=== PATIENT | male | born 1935 | race Caucasian/White ===

== ENCOUNTER 2017-08-19 17:04 | Emergency (ER) | payer MEDICARE ==
[2017-08-19] MEDS ORDERED: COCAINE 4 ML BOTTLE TOP STA (17:52)
--- NOTE | 2017-08-19 17:54 | ED Physician Documentation ---
PD HPI HEENT - Stated complaint Stated Complaint: NOSE BLEED - Chief complaint Chief Complaint: Heent - History obtained from History obtained from: Patient, Family - History of Present Illness Timing - onset: Other (On and off right-sided nosebleed for the last 24 hours. He is not anticoagulated except for baby aspirin. He is on dialysis, Thursday, Thursday, Thursday, but because of easy bleeding is not heparinized during the run.) Review of Systems Constitutional: denies: Fever, Chills Nose: denies: Rhinorrhea / runny nose, Congestion Cardiac: denies: Chest pain / pressure, Palpitations Respiratory: denies: Dyspnea, Cough GI: denies: Abdominal Pain PD PAST MEDICAL HISTORY - Past Medical History Past Medical History: Yes Cardiovascular: Congestive heart failure, High cholesterol, OR Respiratory: Pneumonia, Shortness of breath Neuro: None Endocrine/Autoimmune: None GI: Hiatal hernia, Chronic constipation : Dialysis, Renal insuffiency HEENT: Chronic hearing loss Psych: None Musculoskeletal: Osteoarthritis, Chronic back pain Derm: None - Past Surgical History Past Surgical History: Yes General: Cholecystectomy Ortho: Knee replacement, Rotator cuff repair Cardiovascular: CABG, Coronary stent - Present Medications Home Medications: Ambulatory Orders Medication Instructions Recorded Confirmed Carvedilol [Coreg] 2 tab PO DAILY 08/11/13 08/19/17 Cetirizine [ZyrTEC] 10 mg PO DAILY 08/11/13 08/19/17 Docusate Sodium 250Mg Capsule 250 mg PO DAILY 08/11/13 08/19/17 [Colace] Folic Acid 1 mg PO DAILY 08/11/13 08/19/17 Nitroglycerin [Nitrostat] 0.4 mg SL Q5MIN PRN 08/11/13 08/19/17 Pravastatin Sodium [Pravachol] 40 mg PO HS 08/11/13 08/19/17 Vitamin B Complex [B Complex] 1 each PO DAILY 08/11/13 08/19/17 oxyCODONE [Roxicodone] 5 mg PO Q4-6H PRN 08/11/13 08/19/17 Modium For Bp 08/19/17 - Allergies Allergies/Adverse Reactions: Allergies Allergy/AdvReac Type Severity Reaction Status Date / Time No Known Drug Allergies Allergy Verified 04/21/14 20:19 - Social History Does the pt smoke?: No Smoking Status: Never smoker Does the pt drink ETOH?: No Does the pt have substance abuse?: No PD ED PE NORMAL - Vitals Vital signs reviewed: Yes - General General: Alert and oriented X 3, No acute distress - HEENT HEENT: Other (Obvious knuckle of vein on the right inferior nasal septum with sequela of recent bleeding but no active bleeding.) - Neck Neck: Supple, no meningeal sign, No bony TTP - Neuro Neuro: Alert and oriented X 3, Normal speech - Psych Psych: Normal mood, Normal affect Results - Vitals Vitals: Vital Signs - 24 hr 08/19/17 17:14 Temperature 35.6 C L Heart Rate 85 Respiratory 17 Rate Blood Pressure 113/58 L O2 Saturation 99 Oxygen O2 Source Room air - Labs Labs: Laboratory Tests 08/19/17 18:00 Hgb 9.9 L Hct 30.0 L Procedures - Epistaxis Site: Right, Anterior Preparation: Cocaine Treatment: Silver Nitrate Other: Observed - no bleeding, Pt tolerated well Departure - Departure Disposition: Home, Self Care Clinical Impression: Epistaxis Condition: Good Record reviewed to determine appropriate education?: Yes Instructions: Nosebleed Comments: Her hemoglobin today is 9.9 and your hematocrit is 30. As discussed I do not have any recent values on you so it is hard to say if this is new or more long- term. Bring these numbers with you to dialysis on Thursday, they probably have more recent values for you at the dialysis center. Return if you have further bleeding.
[2017-08-19 18:10] LABS: HGB - HEMOGLOBIN 9.9 g/dL (14.0-18.0)
[2017-08-19 18:31] VITALS: BP 112/54
== END 2017-08-19 18:31 | disposition home or self-care (01) ==
LOC: ED 17:04
DX: R04.0 Epistaxis (principal); D64.9 Anemia, unspecified; Z79.82 Long term (current) use of aspirin; Z99.2 Dependence on renal dialysis
CPT/HCPCS: 30901; 36415; 85014; 85018; 99283

== ENCOUNTER 2018-08-23 12:06 | Outpatient (CLI) | payer MEDICARE | END 2018-08-23 12:07 | disposition short-term general hospital (02) | LOC: EMS 12:06 | PROVIDERS: ATTEND Surgery | DX: R56.9 Unspecified convulsions (principal); Z99.2 Dependence on renal dialysis | CPT/HCPCS: A0425; A0427 ==

== ENCOUNTER 2018-09-02 14:15 | Outpatient (CLI) | payer MEDICARE ==
--- NOTE | 2018-09-02 20:22 | CONSULTATION NOTE ---
Palliative Care Consultation - Referral Referring Provider: Dr. Betito Hedrick Time of Visit: [id number] Referral setting: Home Referral Reason: ESRD/Acute Pain/Goals of Care - Information Sources Records reviewed: Previous records reviewed History/Review of Systems obtained from: Patient, Family ( Tracy present for visit) Exam limitations: No limitations - History of Present Illness Brief History of Present Illness: This is a feisty 83-year-old gentleman who is end-stage renal disease on dialysis, initiated 04/2013. He presented with kidney failure after ongoing complicated cardiac status. Patient also is known to have CAD status post 3 CABGs, atrial fib, has been struggling intermittently with hypotension most recently. He had a recent hospitalization on 08/23 discharge 08/26 at [facility] precipitated by what was thought to be a seizure. 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 Appears pain is been escalating over several days to weeks, worsened since hospitalization. Patient is quite tearful, has not most taken Percocet 3 in 24 hours. Patient does have a follow-up with orthopedist next week, patient is barely able to ambulate with his 4 wheeled walker. Reports his pain at 12 out of 10. He did go to physical therapy this morning, unclear if this is appropriate, they did get him a more tight abdominal binder but has found this actually more problematic than helpful. * Of note cardiology consult recommended discontinuation of Carvedilol but was discharges on 9.75 mg (patient rehospitalized prior to clarification)* Palliative care has been asked to see patient regarding his ongoing functional decline and increasing high symptom burden, and to continue to explore goals of care and advanced care planning. Home visit done today to establish rapport, evaluate pain and symptom management, and coordinate care and services. Medical/Surgical History - Past Medical History Cardiovascular: reports: Congestive heart failure, High cholesterol, Coronary artery disease, OR, Other (hypotension) Respiratory: reports: Pneumonia, Shortness of breath Neuro: reports: TIA, Other (RLS) Endocrine/Autoimmune: reports: None GI: reports: Hiatal hernia, Chronic constipation : reports: Dialysis, Renal insuffiency HEENT: reports: Chronic hearing loss Psych: reports: Depression, Anxiety Musculoskeletal: reports: Osteoarthritis, Chronic back pain Derm: reports: None MRSA Hx?: No - Past Surgical History General: reports: Cholecystectomy Ortho: reports: Knee replacement, Rotator cuff repair Cardiovascular: reports: CABG, Coronary stent Social History - Living Situation Living arrangement: At home Living Situation: With spouse/s.o. Support System: Patient has had a colorful life, reports he had at least 5 careers. He lives in a home that he himself built, he has shop he is very proud of, and likes to work with his hands and build things. He is quite frustrated by his decline in functional status and ability to do the things he used to be able to do. He lives with his who they have been 35 years. They have 3 kids, and adopted daughter who lives in [place], and his son and who live in [facility]. They have very much supported by the her spiritual community [employer], is plugged into the caregiver support group, she herself is a retired nurse. They are asked starting to explore resources to be able to support them at home, a big deficit as far as looking at resources and managing medications as patient does not have a pharmacy benefit Family History - Family History Family History: Mother: , Father: , CVA/TIA Medications/Allergies - Medications Home Medications: Ambulatory Orders Medication Instructions Recorded Confirmed Carvedilol [Coreg] 3 tab PO DAILY PM 08/11/13 09/02/18 Docusate Sodium 250Mg Capsule 250 mg PO DAILY 08/11/13 09/02/18 [Colace] Folic Acid 1 mg PO DAILY 08/11/13 09/02/18 Nitroglycerin [Nitrostat] 0.4 mg SL Q5MIN PRN 08/11/13 09/02/18 Pravastatin Sodium [Pravachol] 40 mg PO HS 08/11/13 09/02/18 Aspirin 81 mg PO DAILY 09/02/18 09/02/18 Calcium Carbonate [Tums (Calcium 500 mg PO TID 09/02/18 09/02/18 Carbonate 500mg)] Cholecalciferol (Vitamin D3) 1,000 units PO DAILY 09/02/18 09/02/18 [Vitamin D3] Gabapentin 100 mg PO .1 AM 2 HS 09/02/18 09/02/18 Midodrine HCl 20 mg PO .MWF WITH DIALYSIS 09/02/18 09/02/18 Omeprazole 20 mg PO BID 09/02/18 09/02/18 Pramipexole [Mirapex] 0.125 mg PO TID 09/02/18 09/02/18 oxyCODONE/ACET 5/325 [Percocet 5 1 - 2 tab PO Q4HR PRN 09/02/18 09/02/18 mg/325 mg] - Allergies Allergies/Adverse Reactions: Allergies Allergy/AdvReac Type Severity Reaction Status Date / Time No Known Drug Allergies Allergy Verified 04/21/14 20:19 Review of Systems - Constitutional Constitutional: reports: Fatigue, Poor appetite - Eyes Eyes: reports: Vision loss, Corrective lenses - Ears, Nose & Throat Ears, Nose & Throat: reports: Hearing loss, Hearing aids, Dry mouth - Cardiovascular Cardiovascular: reports: Edema, Exertional dyspnea, Decr. exercise tolerance - Respiratory Respiratory: reports: SOB with exertion - Gastrointestinal Gastrointestinal: reports: Constipation, Early satiety. denies: Nausea - Musculoskeletal Musculoskeletal: reports: Back pain, Muscle aches, Stiffness, Limited range of motion, Muscle weakness, Assistive devices (uses rolling walker; more difficulty with transfers) - Integumentary Integumentary: reports: Dryness - Neurological Neurological: reports: General weakness - Psychiatric Psychiatric: reports: Anxiety - All Other Systems All Other Systems: reports: Reviewed and negative Physical Exam - Vital Signs Temperature: 96.5 C Pulse Rate: 77 Respiratory Rate: 18 O2 Saturation: 95 (ra @ rest) Blood Pressure: 92/68 (right upper arm; 126/76 right wrist cuff) - Physical Exam General Appearance: positive: Moderate distress (related to severe pain;) Eyes Bilateral: positive: Normal inspection Neck: positive: No JVD, Trachea midline Cardiovascular: positive: Regular rate & rhythm Respiratory: positive: Diminished in bases Abdomen: positive: Soft Skin: positive: Pallor Extremities: positive: Pedal edema (left greater than right) Neurologic/Psychiatric: positive: Oriented x3, Weakness Palliative Care - POLST Patient has POLST: Yes POLST Status: Full Code ([facility] records have patient filled out POLST DNR/DNI- document has Accept CPR and Selective Treatments please see Pall Care Discussion) Pain: Severity (07/12; taking up to one percocet every 6 hours/no more than 3 24 hours though can take more; no sedation with medication; barely takes a point off the severity;) Tiredness/Fatigue: Severe (7-10) Drowsiness/Sedation: None Nausea: None Depression: Moderate (4-6) Anxiety: Severe (7-10) (related to the pain; and lack of mobility) Dyspnea: Moderate (4-6) Constipation: Yes, Opoid induced, Unmanaged Feelings of wellbeing/Perceived Quality of Life: Poor, Worsening Performance Status: Patient prides himself with having been significantly independent and active over the last several years despite his ongoing health problems. He has had significant decline though with his falls, he is needing more assistance with dressing, bathing, and now has taken over multitude of tasks he used to do. Patient finds this quite distressing and feeling somewhat despondent related to this. Patient having difficulty getting from sitting to standing secondary to pain today, his gait is shuffled and slow, is unable to reach or turn or twist secondary to pain even when seated in chair - Palliative Care Discussion: Patient recently completed a [facility] at his stay at [facility]. He had actually filled out except CPR, but does not want to be intubated. He selected select active treatments. We discussed that this is somewhat of a oxymorphone, that CPR does include respiratory support if his heart were to stop and he wanted an attempted resuscitation. Patient has had multiple near experiences, does not fear , does not fear CPR. The we did review in the context of his current health care status, most likely he would not be independent or able to return to his previous level of functioning given his severity of his illness at this point in time he does acknowledge this, and does recognize his life expectancy is much more limited at this moment. He reports he is not fearful of dying, he is somewhat fearful of going to the process. His fear is that he is going to choke to or become significantly short of breath. This is reflective of an experience he had with previously being intubated. Patient perceives patients who go off dialysis, as committing suicide. He is not easily persuaded to read frame this into the context of allowing natural and the consequences of a expected disease process. Explored patient's values, which are to be independent, to complete his work he is currently working on, and to feel like he has done what he can. He is feeling quite discouraged though and despondent with the escalating pain, and does feel if this does not improve would not be acceptable quality of life. with quite realistic expectations, is aware patient could easily pass away in his sleep. She is not distressed by this, and in fact reports he has had an extended quantity of life from when she first met him. She is thankful for the time they have had together but does perceive his quality of life is deteriorating and that she is going to need more support to care for him. Impression and Recommendations - Palliative Care Impression: This is a feisty 83-year-old gentleman with end-stage renal disease on hemodialysis, has significant coronary artery disease, and now presents with acute on chronic uncontrolled pain. Patient has had both functional and I suspect some cognitive decline over the last several weeks. Palliative care to provide support for pain and symptom management, coordination of care to access increased services, and define patient's goals of care. Recommendations/Counseling Done: 1. Acute on chronic pain, attributed to compression fractures in lower back. Patient is under medicated, patient presents many barriers to significantly increasing his pain medication. Counseling provided regarding how pain medication works, short acting versus long-acting, concern for Tylenol and the Percocet, the patient without pharmacy benefit. Negotiated and the end, patient to start taking 1-2 tabs every 4 hours around the clock, to get a baseline. If this is not improved, is to contact me, and we will put him on plain oxycodone and escalate doses to comfort. Goal would have been hopefully to switch him to fentanyl patch, unclear if this is going to be an option given his finances. Patient to see orthopedist next Thursday, will await final outcome on this. Patient currently with significant cardiac disease, does not appear appropriate candidate for methadone at this point. 2. Constipation. Patient only taking 2 cassette 250 mg daily. Patient has not had a good male movement for several days, patient has been started on MiraLAX. Discussed in the context of MiraLAX does need to be in water, patient is on a 24 ounce restriction. Instructed can use in 4 ounces. Patient also to obtain senna tablets, most likely are going to need to titrate this up. 3. Depression. Patient feels despondent and expressing feelings of despair. Agreed will first address pain issue, then cannot revisit if patient may benefit from antidepressant. Patient is sadness and grief most likely attributed to feelings of grief and loss, as patient's functional status and things that bring him value are no longer within his graft secondary to his functional decline. 4. Advanced care planning. Initiated conversation regarding F[facility], goals of care, will continue to work with patient and regarding realistic outcome as well as coordinate services with other team members. Will make referral to medical palliative care social welfare clerk, if indicated as already working with Senior services. Patient may benefit from a volunteer. Plan to follow-up by phone on Thursday, continue to titrate pain medication. Awaiting outcome of orthopedist referral, most likely patient will have limited options. Home visit plan to continue titrating pain medications, establishing rapport, and follow-up on symptom burden Time Spent: 80 minutes with greater than 50% of this done in counseling regarding pain management, constipation management and goals of care as well as anticipatory guidance
== END 2018-09-02 14:16 | disposition home or self-care (01) ==
LOC: PC 14:15
PROVIDERS: ATTEND Nurse Practitioner Adult Health
DX: Z51.5 Encounter for palliative care (principal); G89.29 Other chronic pain; S32.009D Unspecified fracture of unspecified lumbar vertebra, subsequent encounter for fracture with routine healing; K59.03 Drug induced constipation; T40.2X5A Adverse effect of other opioids, initial encounter; F32.9 Major depressive disorder, single episode, unspecified; N18.6 End stage renal disease; I25.10 Atherosclerotic heart disease of native coronary artery without angina pectoris; I48.91 Unspecified atrial fibrillation; M48.061 Spinal stenosis, lumbar region without neurogenic claudication; M54.16 Radiculopathy, lumbar region; I50.9 Heart failure, unspecified; I25.2 Old myocardial infarction; Z99.2 Dependence on renal dialysis; Z95.1 Presence of aortocoronary bypass graft; Z91.81 History of falling; Z79.899 Other long term (current) drug therapy; Z79.891 Long term (current) use of opiate analgesic
CPT/HCPCS: 99345

== ENCOUNTER 2018-09-03 09:26 | Outpatient (CLI) | payer MEDICARE | END 2018-09-03 09:27 | disposition short-term general hospital (02) | LOC: EMS 09:26 | PROVIDERS: ATTEND Surgery | DX: R53.1 Weakness (principal); R05 Cough; N19 Unspecified kidney failure; Z99.2 Dependence on renal dialysis; M25.551 Pain in right hip; Z95.1 Presence of aortocoronary bypass graft | CPT/HCPCS: A0425; A0429 ==